=== PATIENT | male | born 1960 | race Caucasian/White ===

== ENCOUNTER 2019-05-12 17:23 | Emergency (ER) | payer SELFPAY ==
[~2019-05-12] VITALS: Ht 170.2 cm; Wt 81.8 kg
[2019-05-12 17:25] VITALS: Ht 170.2 cm; Wt 81.8 kg
[2019-05-12] MEDS ORDERED: NAPROSYN500 MG PO (20:05)
[2019-05-12 20:22] VITALS: BP 139/99
== END 2019-05-12 20:23 | disposition home or self-care (01) ==
LOC: D.ER 17:23 → EDBD 17:23 → D.ER 20:23
DX: R51 Headache (principal); W19.XXXA Unspecified fall, initial encounter; Y93.9 Activity, unspecified; Y92.89 Other specified places as the place of occurrence of the external cause

== ENCOUNTER 2020-02-17 18:20 | Emergency (ER) | payer SELFPAY ==
[~2020-02-17] VITALS: Ht 172.7 cm; Wt 81.8 kg
[~2020-02-17 18:20] MED LIST: NAPROSYN500 MG PO
[2020-02-17 18:35] VITALS: Ht 172.7 cm; Wt 81.8 kg
[2020-02-17 19:03] LABS: BASOPHILS 0.8 % (0-2); EOSINOPHILS 3.1 % (0-7); HEMATOCRIT 47.6 % (42.0-54.0); HEMOGLOBIN 16.1 g/dL (13.5-17.5); IMMATURE GRANULOCYTES 0.2 % (0-5); LYMPHOCYTES 28.2 % (15-50); MCH 32.3 pg (26.0-34.0); MCHC 33.8 g/dL (31.0-37.0); MCV 95.4 fL (80.0-100.0); MEAN PLATELET VOLUME 10.2 fL (7.4-10.4); MONOCYTES 5.9 % (2-11); NEUTROPHILS 61.8 % (40-80); PLATELET COUNT 220 10x3/uL (130-400); RBC 4.99 10x6/uL (4.20-6.10); RDW 14.3 % (11.5-14.5); WBC 5.2 10x3/uL (4.8-10.8)
[2020-02-17 19:14] LABS: ANION GAP 20.7 mmol/L (8-16); CALCIUM 8.5 mg/dL (8.5-10.1); CARBON DIOXIDE 19.9 mmol/L (21.0-32.0); CREATININE - SERUM 1.2 mg/dL (0.6-1.3); POTASSIUM - SERUM 3.6 mmol/L (3.5-5.1)
[2020-02-17 19:27] LABS: ALBUMIN 3.8 g/dL (3.4-5.0); BILIRUBIN - TOTAL 0.75 mg/dL (0.2-1.3); MAGNESIUM - SERUM 1.8 mg/dL (1.8-2.4); PROTEIN - SERUM 8.1 g/dL (6.4-8.2)
[2020-02-17 19:46] LABS: BILIRUBIN NEGATIVE (NEGATIVE); KETONE SMALL mg/dL (NEGATIVE); NITRITE NEGATIVE (NEGATIVE); UROBILINOGEN NORMAL mg/dL (< 2)
[2020-02-17 19:54] LABS: UDS - AMPHET NEGATIVE QUAL (NEGATIVE); UDS - BARB NEGATIVE QUAL (NEGATIVE); UDS - BENZO NEGATIVE QUAL (NEGATIVE); UDS - COCAINE NEGATIVE QUAL (NEGATIVE); UDS - OPIATE NEGATIVE QUAL (NEGATIVE); UDS - PCP NEGATIVE QUAL (NEGATIVE); UDS - THC NEGATIVE QUAL (NEGATIVE)
[2020-02-18 10:06] VITALS: BP 132/84
== END 2020-02-18 10:07 | disposition home or self-care (01) ==
LOC: D.ER 18:20
PROVIDERS: Family Medicine
DX: F10.129 Alcohol abuse with intoxication, unspecified (principal); Y90.8 Blood alcohol level of 240 mg/100 ml or more; R94.4 Abnormal results of kidney function studies; E87.2 Acidosis